=== PATIENT | male | born 1965 | race African-American/Black ===

== ENCOUNTER 2016-12-27 16:15 | Inpatient (IN) | payer OTHER ==
[2016-12-27] MEDS ORDERED: IV NS 0.9% 1,000 ML BAG IV ONE (17:00)
[2016-12-27] MEDS ORDERED: hydrALAZINE HCL IV 20 MG VIAL ONE (17:10)
[2016-12-27] MEDS ORDERED: POTASSIUM CHLORIDE 20 MEQ TAB.PRT.SR PO ONE ×2 (17:30→17:33)
[2016-12-27] MEDS ORDERED: ASPIRIN 81 MG TAB.CHEW PO ONE (17:30)
[2016-12-27] MEDS ORDERED: hydrALAZINE HCL IV 20 MG VIAL IV ONE ×2 (17:30→18:00)
[2016-12-27] MEDS ORDERED: ASPIRIN EC 81 MG TABLET.DR PO ONE (17:32)
[2016-12-27] MEDS ORDERED: AMLODIPINE BESYLATE 5 MG TABLET PO ONE (18:00)
[2016-12-27] MEDS ORDERED: OLANZAPINE 10 MG VIAL IM ONE ×2 (18:12→18:30)
[2016-12-27] MEDS ORDERED: AMLODIPINE BESYLATE 5 MG TABLET ONE (18:13)
[2016-12-27] MEDS ORDERED: diphenhydrAMINE HCL 50 MG/ML VIAL ONE (19:09)
[2016-12-27] MEDS ORDERED: MAG HYDROX/AL HYDROX/SIMETH 30 ML UDC PO PRN (19:30)
[2016-12-27] MEDS ORDERED: MAGNESIUM HYDROXIDE 30 ML UDC PO PRN (19:30)
[2016-12-27] MEDS ORDERED: ONDANSETRON HCL/PF 4 MG/2 ML VIAL IVP PRN (19:30)
[2016-12-27] MEDS ORDERED: ZOLPIDEM TARTRATE 5 MG TABLET PO PRN (19:30)
[2016-12-27] MEDS ORDERED: diphenhydrAMINE HCL 50 MG/ML VIAL IV ONE (19:30)
[2016-12-27] MEDS ORDERED: ACETAMINOPHEN 325 MG TABLET PO PRN (19:30)
[2016-12-27] MEDS ORDERED: OLANZAPINE 5 MG TABLET PO PRN (19:30)
[2016-12-27] MEDS: ENOXAPARIN SODIUM 40 MG/0.4 ML DISP.SYRIN SQ SCH (21:25)
[2016-12-27] MEDS ORDERED: Thiamine 100 MG/ML VIAL ONE (23:20)
[2016-12-27] MEDS ORDERED: Folic acid 1 MG/0.2 ML VIAL ONE (23:20)
[2016-12-27] MEDS ORDERED: Folic acid 1 MG in IV D5W 50 ML IV SCH (23:30)
[2016-12-27] MEDS: Thiamine 100 MG in IV D5W 50 ML IV SCH (23:43)
[2016-12-27] MEDS: IV NS 0.9% 1,000 ML IV PRN (23:44)
[2016-12-28] MEDS: AMLODIPINE BESYLATE 5 MG TABLET PO SCH (08:40)
[2016-12-28] MEDS: HYDROCHLOROTHIAZIDE 25 MG TABLET PO SCH (08:41)
[2016-12-28] MEDS: ASPIRIN 81 MG TAB.CHEW PO SCH (08:41)
[2016-12-28] MEDS ORDERED: OLANZAPINE 5 MG TABLET PO SCH (09:00)
[2016-12-28] MEDS ORDERED: hydrALAZINE HCL 25 MG TABLET PO SCH (09:00)
[2016-12-28] MEDS: Magnesium 1GM/D5W 100ML PREMIX 100 ML IV SCH ×2 (09:57→11:07)
[2016-12-28] MEDS ORDERED: OLANZAPINE 5 MG TABLET PO PRN (13:00)
[2016-12-28] MEDS ORDERED: DIAZEPAM 5 MG TABLET PO PRN (13:00)
[2016-12-28] MEDS ORDERED: hydrALAZINE HCL IV 20 MG VIAL IV PRN (13:00)
[2016-12-28] MEDS: METOPROLOL TARTRATE 25 MG TABLET PO SCH ×2 (13:33→20:53)
[2016-12-28] MEDS: IV NS 0.9% 1,000 ML IV PRN (15:50)
[2016-12-28] MEDS: hydrALAZINE HCL 25 MG TABLET PO SCH (17:31)
[2016-12-28] MEDS: ENOXAPARIN SODIUM 40 MG/0.4 ML DISP.SYRIN SQ SCH (20:54)
[2016-12-28] MEDS ORDERED: Folic acid 1 MG in IV D5W 50 ML IV SCH (23:00)
[2016-12-28] MEDS: Thiamine 100 MG in IV D5W 50 ML IV SCH (23:33)
[2016-12-29] MEDS: IV NS 0.9% 1,000 ML IV PRN (03:32)
[2016-12-29] MEDS: AMLODIPINE BESYLATE 5 MG TABLET PO SCH (08:41)
[2016-12-29] MEDS: hydrALAZINE HCL 25 MG TABLET PO SCH ×2 (08:42→16:06)
[2016-12-29] MEDS: ASPIRIN 81 MG TAB.CHEW PO SCH (08:42)
[2016-12-29] MEDS: METOPROLOL TARTRATE 25 MG TABLET PO SCH ×2 (08:43→21:15)
[2016-12-29] MEDS: HYDROCHLOROTHIAZIDE 25 MG TABLET PO SCH (08:43)
[2016-12-29] MEDS: ENOXAPARIN SODIUM 40 MG/0.4 ML DISP.SYRIN SQ SCH (21:17)
[2016-12-29] MEDS ORDERED: THIAMINE HCL 100 MG TABLET PO SCH (23:00)
[2016-12-29] MEDS ORDERED: FOLIC ACID 1 MG TABLET PO SCH (23:00)
[2016-12-30] MEDS: AMLODIPINE BESYLATE 5 MG TABLET PO SCH (08:13)
[2016-12-30] MEDS: hydrALAZINE HCL 25 MG TABLET PO SCH (08:14)
[2016-12-30] MEDS: ASPIRIN 81 MG TAB.CHEW PO SCH (08:14)
[2016-12-30] MEDS: HYDROCHLOROTHIAZIDE 25 MG TABLET PO SCH (08:14)
[2016-12-30] MEDS: METOPROLOL TARTRATE 25 MG TABLET PO SCH (08:15)
== END 2016-12-30 15:30 | disposition home or self-care (01) | DRG 897 ==
DX: F10.239 Alcohol dependence with withdrawal, unspecified (principal); R45.851 Suicidal ideations; I42.2 Other hypertrophic cardiomyopathy; F23 Brief psychotic disorder; F10.229 Alcohol dependence with intoxication, unspecified; I16.0 Hypertensive urgency; F32.9 Major depressive disorder, single episode, unspecified; I34.0 Nonrheumatic mitral (valve) insufficiency; E87.6 Hypokalemia; F17.210 Nicotine dependence, cigarettes, uncomplicated; I10 Essential (primary) hypertension; K40.90 Unilateral inguinal hernia, without obstruction or gangrene, not specified as recurrent; Z91.14 Patient's other noncompliance with medication regimen; Y90.8 Blood alcohol level of 240 mg/100 ml or more